=== PATIENT | female | born 1985 | race American Indian/Alaskan Native ===

== ENCOUNTER 2016-05-25 20:38 | Emergency (ER) | payer BC ==
[2016-05-25 20:48] VITALS: BP 145/98
[2016-05-25] MEDS ORDERED: Naproxen 500 MG Tab PO STA (21:40)
--- NOTE | 2016-05-25 21:44 | EDM.PDOC ---
ED HPI GENERAL MEDICAL PROBLEM - General Chief Complaint: General Stated Complaint: TOOTH PAIN Time Seen by Provider: 05/25/16 20:49 Source of Information: Reports: Patient, RN notes reviewed History Limitations: Reports: No limitations - History of Present Illness INITIAL COMMENTS - FREE TEXT/NARRATIVE: The patient states that she had a crown placed onto an upper left tooth this past 05/20/2016 per her dentist, Dr. Wallace, in [place]. She states that Dr. Wallace had to remove a considerable amount of decay before putting the crown on, and there was some speculation that he may not have gotten all of it. She states that she has had dental pain in that tooth ever since the crown was applied, made worse with eating. Tonight around 20:00, it was especially bad, and the pain spread across other teeth. It has since subsided. No oral drainage. No recent fever. Tooth/Teeth Pain Score (Numeric/FACES): 5 - Related Data Allergies Allergy/AdvReac Type Severity Reaction Status Date / Time sumatriptan [From Imitrex] Allergy Severe Hives Verified 05/25/16 20:45 sumatriptan succinate Allergy Severe Hives Verified 05/25/16 20:45 [From Imitrex] Home Meds: Home Meds Naproxen 1 tab PO Q12H PRN #20 tablet 05/25/16 [Rx] Past Medical History Neurological History: Reports: Migraines - Past Surgical History HEENT Surgical History: Reports: Oral surgery ([place] teeth extracted), Tonsillectomy Social & Family History - Tobacco Use Smoking Status *Q: Never Smoker Second Hand Smoke Exposure: No - Alcohol Use Alcohol Use History: Yes Days Per Week of Alcohol Use: 0 Alcohol Use Frequency: Socially - Recreational Drug Use Recreational Drug Use: No - Living Situation & Occupation Living situation: Reports: , with spouse 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[employer]) ED ROS GENERAL - Review of Systems Review Of Systems: See Below Constitutional: Reports: no symptoms HEENT: Reports: Dental pain (as per the HPI) Respiratory: Reports: No Symptoms Cardiovascular: Reports: No symptoms Endocrine: Reports: no symptoms GI/Abdominal: Reports: No symptoms : Reports: no symptoms Musculoskeletal: Reports: no symptoms Skin: Reports: no symptoms Neurological: Reports: No Symptoms Psychiatric: Reports: No symptoms Hematologic/Lymphatic: Reports: no symptoms Immunologic: Reports: no symptoms ED EXAM, GENERAL - Physical Exam Exam: See Below Exam Limited By: No limitations General Appearance: alert, WD/WN, no apparent distress Eye Exam: bilateral eye: EOMI, normal inspection Ears: normal external exam, normal canal, hearing grossly normal, normal TMs Ear Exam: bilateral ear: auricle normal, canal normal, TM normal Nose: normal inspection, normal mucosa, no blood Throat/Mouth: Normal inspection, Normal lips, Normal teeth (Tooth #1 absent. Tooth #12 (the tooth of concern) with a crown. No visible abnormality. No associated gingival swelling or pointing. Tooth #14 with filling. Teeth #16, 17 absent. Tooth #30 with filling. Tooth #32 absent.), Normal gums, Normal oropharynx, Normal voice, No airway compromise Head: atraumatic, normocephalic Neck: normal inspection, supple, non-tender, full range of motion. No: lymphadenopathy (L), lymphadenopathy (R) Course - Vital Signs Last Recorded V/S: Last Vital Signs Temp 37.4 C 05/25/16 20:45 Pulse 90 05/25/16 20:45 Resp 18 05/25/16 20:45 BP 145/98 H 05/25/16 20:45 Pulse Ox 98 05/25/16 20:45 - Orders/Labs/Meds Meds: Medications Discontinued Medications Generic Name Dose Route Start Last Admin Trade Name Freq PRN Reason Stop Dose Admin Naproxen 500 mg 05/25/16 21:40 05/25/16 21:48 Naprosyn PO 05/25/16 21:41 500 mg ONETIME STA Administration - Re-Assessments/Exams Free Text/Narrative Re-Assessment/Exam: 05/25/16 21:39 No dental infection seen, although it's possible that the patient could have some decay underneath the crown of tooth #12. I do not see an indication for an antibiotic. I will start the patient on naproxen, and e-prescribe the same. She will need to contact her dentist first thing in the morning. Departure - Departure Time of Disposition: 21:40 Disposition: Home, Self-Care 01 Condition: good Clinical Impression: Dentalgia Prescriptions: Naproxen 1 tab PO Q12H PRN #20 tablet PRN Reason: Pain Instructions: Dental Caries Referrals: PCP,None [Primary Care Provider] - Forms: ED Department Discharge Additional Instructions: You were seen in the emergency room for a left upper toothache. On examination, there is no sign of a broken tooth or dental infection. It is possible, however, that you could have decay underneath the crown of tooth #12. You have been started on the pain medicines naproxen. Take one tablet every 12 hours, with food, as prescribed. Avoid activities that worsen your tooth pain, such as exposure to cold. We recommend you contact the office of your Dentist, Dr. Wallace, first thing in the morning. If any other problems, please do not hesitate to return to the ER.
== END 2016-05-25 22:10 | disposition home or self-care (01) ==
LOC: JD.ED 20:38
DX: K08.89 Other specified disorders of teeth and supporting structures (principal); Z98.890 Other specified postprocedural states; Z88.8 Allergy status to other drugs, medicaments and biological substances
CPT/HCPCS: 99283; A9270; 99282